=== PATIENT | male | born 1965 | race Caucasian/White ===

== ENCOUNTER 2016-06-01 09:31 | Emergency (ER) | payer MEDICAID ==
[~2016-06-01] VITALS: Ht 165.1 cm; Wt 94.1 kg
[~2016-06-01 09:31] MED LIST: ENAL2.5T PO; METF500T4 PO; PRAV10TA2 PO; PREG100C PO
[2016-06-01] MEDS ORDERED: KETOROLAC 30 MG/1 ML IM ONE (10:30)
[2016-06-01] MEDS ORDERED: KETOROLAC 30 MG/1 ML ONE (10:43)
[2016-06-01] MEDS ORDERED: INSU100V8 SQ (11:17)
[2016-06-01 11:29] VITALS: BP 182/90
== END 2016-06-01 11:51 | disposition home or self-care (01) ==
LOC: ED 11:39
DX: S22.42XA Multiple fractures of ribs, left side, initial encounter for closed fracture (principal); E78.5 Hyperlipidemia, unspecified; I10 Essential (primary) hypertension; E11.40 Type 2 diabetes mellitus with diabetic neuropathy, unspecified; J45.909 Unspecified asthma, uncomplicated; X58.XXXA Exposure to other specified factors, initial encounter; Y93.89 Activity, other specified; Y92.89 Other specified places as the place of occurrence of the external cause; Y99.8 Other external cause status
CPT/HCPCS: 71101; 93005; 96372; 99284; J1885

== ENCOUNTER 2016-08-26 11:01 | Inpatient (IN) | payer MEDICAID ==
[~2016-08-26] VITALS: Ht 165.1 cm; Wt 86.3 kg
[2016-08-26] VITALS (8 sets, daily range): BP systolic 156–181; BP diastolic 73–93
[~2016-08-26 11:01] MED LIST changes: +INSU100V8 SQ
[2016-08-26] MEDS ORDERED: SODIUM CHLORIDE FLUSH 10ML SYR IVF ONE (11:30)
[2016-08-26] MEDS ORDERED: SODIUM CHLORIDE 0.9% 1,000ML IVBOLUS ONE ×2 (11:30→13:30)
[2016-08-26 12:22] LABS: BLOOD UREA NITROGEN 22 mg/dL (7-18)
[2016-08-26 12:28] LABS: ASPARTATE AMINO TRANSFERASE 17 U/L (15-37)
[2016-08-26 12:33] LABS: IS PT STATUS REG ER OR PRE ER? YES
[2016-08-26] MEDS ORDERED: DEXTROSE 50%, 50ML VIAL ONE ×3 (13:06→13:11)
[2016-08-26] MEDS ORDERED: ACETAMINOPHEN 500 MG TABLET ONE (13:07)
[2016-08-26] MEDS ORDERED: INSULIN SINGLE DOSE, ER SQ-INSULIN ONE (13:09)
[2016-08-26] MEDS ORDERED: SODIUM CHLORIDE 0.9% 1,000 ML IV SCH (13:29)
[2016-08-26] MEDS ORDERED: ONDANSETRON 2MG/ML, 2ML IVPush PRN (13:30)
[2016-08-26] MEDS ORDERED: DEXTROSE 4 GM TAB.CHEW PO PRN (13:30)
[2016-08-26] MEDS ORDERED: GLUCAGON 1 MG IM PRN (13:30)
[2016-08-26] MEDS ORDERED: HYDROcodone/APAP 5/325 TABLET PO PRN (13:30)
[2016-08-26] MEDS ORDERED: DOCUSATE 100 MG CAPSULE PO PRN (13:30)
[2016-08-26] MEDS ORDERED: DEXTROSE 50%, 50ML SYRINGE IVPush ONE (13:30)
[2016-08-26] MEDS ORDERED: BISACODYL 10 MG SUPP PR PRN (13:30)
[2016-08-26] MEDS ORDERED: ZOLPIDEM 5MG TABLET PO PRN (13:30)
[2016-08-26] MEDS ORDERED: POLYETHYLENE GLYCOL 17 GM PACKET PO PRN (13:30)
[2016-08-26] MEDS ORDERED: CALCIUM GLUCONATE 0.46MEQ/1ML IVPush ONE (13:30)
[2016-08-26] MEDS ORDERED: INSULIN REGULAR 100 UNITS/ML, 3ML VIAL IVPush ONE (13:30)
[2016-08-26] MEDS ORDERED: ACETAMINOPHEN 500 MG TABLET PO ONE (13:30)
[2016-08-26] MEDS ORDERED: DEXTROSE 50%, 50ML SYRINGE IVPush PRN (13:30)
[2016-08-26 15:36] LABS: PATH.CAST-FLAG NOT PRESENT; SPERM-FLAG NOT PRESENT; SRC-FLAG NOT PRESENT; XTAL-FLAG NOT PRESENT; YLC-FLAG NOT PRESENT
[2016-08-26 15:40] LABS: POTASSIUM,URINE RANDOM 16 mmol/L
[2016-08-26] MEDS: INSULIN ASPART 100 UNITS/ML, PEN SQ-INSULIN SCH ×2 (15:51→20:43)
[2016-08-26] MEDS: ENOXAPARIN 40 MG/0.4 ML SQ SCH ×2 (15:51→16:10)
[2016-08-26 16:13] LABS: BLOOD UREA NITROGEN 19 mg/dL (7-18)
[2016-08-26] MEDS ORDERED: AMLODIPINE 5 MG TABLET PO ONE (16:30)
[2016-08-26] MEDS: hydrALAzine 20 MG/ML, 1ML IV PRN (17:55)
[2016-08-26] MEDS ORDERED: SODIUM POLYSTYRENE SULFONATE ORAL SUSP PO ONE (18:00)
[2016-08-26] MEDS: SODIUM CHLORIDE FLUSH 10ML SYR IVF SCH (21:00)
[2016-08-26] MEDS ORDERED: AMLODIPINE 5 MG TABLET PO SCH (21:00)
[2016-08-27] VITALS (9 sets, daily range): BP systolic 125–196; BP diastolic 76–96
[2016-08-27 05:37] LABS: BLOOD UREA NITROGEN 15 mg/dL (7-18)
[2016-08-27] MEDS: INSULIN ASPART 100 UNITS/ML, PEN SQ-INSULIN SCH ×4 (07:00→19:55)
[2016-08-27] MEDS: ACETAMINOPHEN 325 MG TABLET PO PRN ×2 (07:50→19:45)
[2016-08-27] MEDS: AMLODIPINE 5 MG TABLET PO SCH ×2 (07:50→20:04)
[2016-08-27] MEDS: PREGABALIN 100 MG CAPSULE PO SCH (07:50)
[2016-08-27] MEDS: SODIUM CHLORIDE FLUSH 10ML SYR IVF SCH ×2 (07:51→20:04)
[2016-08-27] MEDS ORDERED: TRAZODONE 100MG TABLET PO PRN (10:00)
[2016-08-27] MEDS ORDERED: HYDROCHLOROTHIAZIDE 12.5 MG CAPSULE PO SCH (10:00)
[2016-08-27] MEDS: VALSARTAN 160 MG TABLET PO SCH (12:26)
[2016-08-27] MEDS: HYDROCHLOROTHIAZIDE 12.5 MG CAPSULE PO SCH (16:09)
[2016-08-27] MEDS: ENOXAPARIN 40 MG/0.4 ML SQ SCH (16:09)
[2016-08-27] MEDS: hydrALAzine 20 MG/ML, 1ML IV PRN (22:26)
[2016-08-28 02:00] VITALS: BP 125/70
[2016-08-28 05:56] LABS: BLOOD UREA NITROGEN 20 mg/dL (7-18)
[2016-08-28] MEDS: INSULIN ASPART 100 UNITS/ML, PEN SQ-INSULIN SCH ×2 (07:00→11:00)
[2016-08-28 07:18] VITALS: BP 145/78
[2016-08-28 07:19] VITALS: BP 133/79
[2016-08-28 07:21] VITALS: BP 144/80
[2016-08-28] MEDS ORDERED: VALS160T3 PO (08:28)
[2016-08-28] MEDS ORDERED: AMLO5TAB2 PO (08:28)
[2016-08-28] MEDS ORDERED: HYDR12.53 PO (08:28)
[2016-08-28] MEDS: PREGABALIN 100 MG CAPSULE PO SCH (09:06)
[2016-08-28] MEDS: VALSARTAN 160 MG TABLET PO SCH (09:06)
[2016-08-28] MEDS: SODIUM CHLORIDE FLUSH 10ML SYR IVF SCH (09:06)
[2016-08-28] MEDS: HYDROCHLOROTHIAZIDE 12.5 MG CAPSULE PO SCH (09:07)
[2016-08-28] MEDS: ACETAMINOPHEN 325 MG TABLET PO PRN (09:07)
[2016-08-28] MEDS: AMLODIPINE 5 MG TABLET PO SCH (09:07)
== END 2016-08-28 13:25 | disposition home or self-care (01) | DRG 641 ==
LOC: ED 11:50 → EDIP 13:03 → SUATTDRO 13:14 → 4EST 14:27
DX: E87.5 Hyperkalemia (principal); E44.1 Mild protein-calorie malnutrition; D64.9 Anemia, unspecified; E11.319 Type 2 diabetes mellitus with unspecified diabetic retinopathy without macular edema; E78.5 Hyperlipidemia, unspecified; E11.21 Type 2 diabetes mellitus with diabetic nephropathy; E11.42 Type 2 diabetes mellitus with diabetic polyneuropathy; I11.9 Hypertensive heart disease without heart failure; E11.649 Type 2 diabetes mellitus with hypoglycemia without coma; I95.1 Orthostatic hypotension; E86.0 Dehydration; F51.04 Psychophysiologic insomnia; T46.4X5A Adverse effect of angiotensin-converting-enzyme inhibitors, initial encounter; Z79.4 Long term (current) use of insulin; Z83.3 Family history of diabetes mellitus; Z98.49 Cataract extraction status, unspecified eye; Z79.84 Long term (current) use of oral hypoglycemic drugs; Z79.899 Other long term (current) drug therapy; Z68.31 Body mass index [BMI] 31.0-31.9, adult
CPT/HCPCS: 36415; 70450; 71010; 80048; 80053; 81001; 82436; 82962; 83036; 83735; 84133; 84300; 84484; 85025; 93005; 96361; 96374; 96375; J0610; J1650; J1815; J0360; J7030

== ENCOUNTER 2016-09-17 16:08 | Inpatient (IN) | payer MEDICAID ==
[~2016-09-17] VITALS: Ht 165.1 cm; Wt 85.9 kg
[~2016-09-17 16:08] MED LIST changes: +AMLO5TAB2 PO; +HYDR12.53 PO; +VALS160T3 PO
[2016-09-17 17:30] LABS: HEMOGLOBIN 11.5 g/dL (13.7-18.0); WHITE BLOOD COUNT 6.5 x10^3/uL (3.4-10)
[2016-09-17 17:40] LABS: BLOOD UREA NITROGEN 34 mg/dL (7-18)
[2016-09-17] MEDS ORDERED: CALCIUM CHLORIDE 10%, 10ML SYR ONE (18:15)
[2016-09-17] MEDS ORDERED: DEXTROSE 50%, 50ML VIAL ONE ×2 (18:15→19:46)
[2016-09-17] MEDS ORDERED: DEXTROSE 50%, 50ML SYRINGE IVPush ONE ×2 (18:30→20:00)
[2016-09-17] MEDS ORDERED: SODIUM CHLORIDE FLUSH 10ML SYR IVF ONE (18:30)
[2016-09-17] MEDS ORDERED: SODIUM CHLORIDE 0.9% 1,000ML IVBOLUS ONE (18:30)
[2016-09-17] MEDS ORDERED: SODIUM BICARB 8.4%, 50ML SYRINGE IVPush ONE (18:30)
[2016-09-17] MEDS ORDERED: CALCIUM CHLORIDE 10%, 10ML SYR IVPush ONE (18:30)
[2016-09-17] MEDS ORDERED: INSULIN REGULAR 100 UNITS/ML, 3ML VIAL IVPush ONE (18:30)
[2016-09-17] MEDS ORDERED: ONDANSETRON 2MG/ML, 2ML IVPush PRN (19:00)
[2016-09-17] MEDS ORDERED: ACETAMINOPHEN 325 MG TABLET PO PRN (19:00)
[2016-09-17] MEDS ORDERED: TEMAZEPAM 15 MG CAPSULE PO PRN (19:00)
[2016-09-17] MEDS ORDERED: CALCIUM GLUCONATE 4.6 MEQ/10 ML IVPush ONE (19:00)
[2016-09-17] MEDS ORDERED: CALCIUM GLUCONATE 4.6 MEQ in SODIUM CHLORIDE 0.9% 50 ML IV ONE (19:30)
[2016-09-17] MEDS ORDERED: SODIUM POLYSTYRENE SULFONATE ORAL SUSP PO ONE (19:30)
[2016-09-17] MEDS ORDERED: DEXTROSE 50%, 50ML VIAL IVPush ONE (20:30)
[2016-09-17 20:41] VITALS: BP 135/81
[2016-09-17] MEDS: SODIUM CHLORIDE 0.9% 1,000 ML IV SCH (22:09)
[2016-09-17] MEDS: HEPARIN 5,000 UNITS/ML, 1ML SQ SCH (22:11)
[2016-09-18 01:28] VITALS: BP 153/83
[2016-09-18] MEDS: HEPARIN 5,000 UNITS/ML, 1ML SQ SCH ×3 (05:22→21:17)
[2016-09-18] MEDS: SODIUM CHLORIDE 0.9% 1,000 ML IV SCH ×2 (05:22→16:57)
[2016-09-18 05:48] LABS: BLOOD UREA NITROGEN 24 mg/dL (7-18)
[2016-09-18 05:50] LABS: HEMATOCRIT 37.4 % (39.2-51.8); HEMOGLOBIN 12.3 g/dL (13.7-18.0); WHITE BLOOD COUNT 5.9 x10^3/uL (3.4-10)
[2016-09-18 08:09] VITALS: BP 149/87
[2016-09-18] MEDS ORDERED: HYDROCHLOROTHIAZIDE 12.5 MG CAPSULE PO SCH (09:00)
[2016-09-18] MEDS: PREGABALIN 100 MG CAPSULE PO SCH (09:17)
[2016-09-18] MEDS: AMLODIPINE 5 MG TABLET PO SCH ×2 (09:17→21:16)
[2016-09-18 13:25] VITALS: BP 156/89
[2016-09-18] MEDS ORDERED: HYDROCHLOROTHIAZIDE 12.5 MG CAPSULE PO ONE (15:00)
[2016-09-18 18:24] VITALS: BP 145/83
[2016-09-18] MEDS ORDERED: GLUCAGON 1 MG IM PRN (19:30)
[2016-09-18] MEDS ORDERED: DEXTROSE 50%, 50ML SYRINGE IVPush PRN (19:30)
[2016-09-18] MEDS ORDERED: DEXTROSE 4 GM TAB.CHEW PO PRN (19:30)
[2016-09-18] MEDS: INSULIN ASPART 100 UNITS/ML, PEN SQ-INSULIN SCH (20:21)
[2016-09-18] MEDS: SODIUM CHLORIDE FLUSH 10ML SYR IVF SCH (21:16)
[2016-09-19] MEDS: SODIUM CHLORIDE 0.9% 1,000 ML IV SCH ×2 (00:55→08:13)
[2016-09-19 02:31] VITALS: BP 148/80
[2016-09-19] MEDS: HEPARIN 5,000 UNITS/ML, 1ML SQ SCH (05:38)
[2016-09-19 06:14] LABS: BLOOD UREA NITROGEN 10 mg/dL (7-18)
[2016-09-19] MEDS: INSULIN ASPART 100 UNITS/ML, PEN SQ-INSULIN SCH (07:00)
[2016-09-19 07:45] VITALS: BP 161/88
[2016-09-19] MEDS: PREGABALIN 100 MG CAPSULE PO SCH (08:10)
[2016-09-19] MEDS: AMLODIPINE 5 MG TABLET PO SCH (08:10)
[2016-09-19] MEDS: SODIUM CHLORIDE FLUSH 10ML SYR IVF SCH (08:11)
[2016-09-19] MEDS ORDERED: HYDROCHLOROTHIAZIDE 12.5 MG CAPSULE PO SCH (09:00)
[2016-09-19] MEDS ORDERED: HYDR12.53 PO (11:10)
[2016-09-19] MEDS ORDERED: ONDANSETRON 2MG/ML, 2ML IVPush PRN (15:00)
[2016-09-19] MEDS ORDERED: DEXTROSE 50%, 50ML SYRINGE IVPush PRN (15:00)
[2016-09-19] MEDS ORDERED: TEMAZEPAM 15 MG CAPSULE PO PRN (15:00)
[2016-09-19] MEDS ORDERED: DEXTROSE 4 GM TAB.CHEW PO PRN (15:00)
[2016-09-19] MEDS ORDERED: ACETAMINOPHEN 325 MG TABLET PO PRN (15:00)
[2016-09-19] MEDS ORDERED: GLUCAGON 1 MG IM PRN (15:00)
[2016-09-19] MEDS ORDERED: SODIUM CHLORIDE FLUSH 10ML SYR IVF SCH (21:00)
== END 2016-09-19 14:40 | disposition home or self-care (01) | DRG 640 ==
LOC: ED 18:50 → EDIP 18:51 → ED 19:02 → 4WST 20:40
PROVIDERS: ADMIT Internal Medicine; ATTEND Internal Medicine
DX: E87.5 Hyperkalemia (principal); N17.0 Acute kidney failure with tubular necrosis; E11.40 Type 2 diabetes mellitus with diabetic neuropathy, unspecified; J45.909 Unspecified asthma, uncomplicated; E11.649 Type 2 diabetes mellitus with hypoglycemia without coma; I10 Essential (primary) hypertension; E78.5 Hyperlipidemia, unspecified; D64.9 Anemia, unspecified
CPT/HCPCS: 36415; 80048; 82962; 83735; 84132; 85025; 93005; 96374; 96375; J0610; J1644; J1815; J7030

== ENCOUNTER 2016-11-15 04:26 | Emergency (ER) | payer MEDICAID ==
[~2016-11-15] VITALS: Ht 165.1 cm; Wt 90.6 kg
[2016-11-15 05:47] LABS: HEMATOCRIT 35.6 % (39.2-51.8); HEMOGLOBIN 11.9 g/dL (13.7-18.0); WHITE BLOOD COUNT 5.4 x10^3/uL (3.4-10)
[2016-11-15 05:59] LABS: BLOOD UREA NITROGEN 31 mg/dL (7-18)
[2016-11-15 07:19] LABS: PATH.CAST-FLAG NOT PRESENT; SPERM-FLAG NOT PRESENT; SRC-FLAG NOT PRESENT; XTAL-FLAG NOT PRESENT; YLC-FLAG NOT PRESENT
[2016-11-15 08:18] VITALS: BP 155/77
[2016-11-16 15:57] LABS: RHEUMATOID FACTOR SCREEN NEGATIVE (NEGATIVE)
== END 2016-11-15 08:43 | disposition home or self-care (01) ==
LOC: ED 05:40
DX: M17.31 Unilateral post-traumatic osteoarthritis, right knee (principal); I10 Essential (primary) hypertension; E11.40 Type 2 diabetes mellitus with diabetic neuropathy, unspecified
CPT/HCPCS: 29505; 36415; 80048; 81001; 82040; 83880; 85025; 86430

== ENCOUNTER 2016-11-22 18:37 | Emergency (ER) | payer MEDICAID ==
[~2016-11-22] VITALS: Ht 165.1 cm; Wt 90.0 kg
[2016-11-22 19:54] LABS: BLOOD UREA NITROGEN 34 mg/dL (7-18); HEMATOCRIT 34.4 % (39.2-51.8); HEMOGLOBIN 11.6 g/dL (13.7-18.0); WHITE BLOOD COUNT 7.6 x10^3/uL (3.4-10)
[2016-11-22 20:59] VITALS: BP 126/64
== END 2016-11-22 21:01 | disposition home or self-care (01) ==
LOC: ED 20:42
DX: R60.0 Localized edema (principal); T50.995A Adverse effect of other drugs, medicaments and biological substances, initial encounter; Y92.89 Other specified places as the place of occurrence of the external cause; I10 Essential (primary) hypertension; E11.9 Type 2 diabetes mellitus without complications; J45.909 Unspecified asthma, uncomplicated; E78.5 Hyperlipidemia, unspecified
CPT/HCPCS: 36415; 71010; 80048; 82040; 85025; 93005; 93970; 99285

== ENCOUNTER 2017-01-29 19:16 | Emergency (ER) | payer MEDICAID ==
[~2017-01-29] VITALS: Ht 157.5 cm; Wt 85.8 kg
[2017-01-29 20:19] LABS: HEMATOCRIT 38.2 % (39.2-51.8); HEMOGLOBIN 12.8 g/dL (13.7-18.0); WHITE BLOOD COUNT 7.5 x10^3/uL (3.4-10)
[2017-01-29 20:24] LABS: RAPID INFLUENZA A Negative (Negative); RAPID INFLUENZA B Negative (Negative)
[2017-01-29 20:31] LABS: BLOOD UREA NITROGEN 19 mg/dL (7-18)
[2017-01-29 21:27] VITALS: BP 159/103
== END 2017-01-29 21:43 | disposition home or self-care (01) ==
LOC: ED 19:57
DX: B34.9 Viral infection, unspecified (principal); J34.0 Abscess, furuncle and carbuncle of nose; R51 Headache; I10 Essential (primary) hypertension; E11.9 Type 2 diabetes mellitus without complications; J45.909 Unspecified asthma, uncomplicated; E78.5 Hyperlipidemia, unspecified
CPT/HCPCS: 36415; 71020; 80048; 85025; 87400; 93005; 99285

== ENCOUNTER 2017-02-20 16:21 | Emergency (ER) | payer MEDICAID ==
[~2017-02-20] VITALS: Ht 165.1 cm; Wt 88.8 kg
[2017-02-20 16:23] VITALS: BP 192/96
== END 2017-02-20 18:10 | disposition home or self-care (01) ==
LOC: ED 16:58
DX: S50.11XA Contusion of right forearm, initial encounter (principal); S60.211A Contusion of right wrist, initial encounter; S60.221A Contusion of right hand, initial encounter; E11.9 Type 2 diabetes mellitus without complications; E78.5 Hyperlipidemia, unspecified; I10 Essential (primary) hypertension; X58.XXXA Exposure to other specified factors, initial encounter; Y93.E9 Activity, other interior property and clothing maintenance; Y99.8 Other external cause status; Y92.090 Kitchen in other non-institutional residence as the place of occurrence of the external cause
CPT/HCPCS: 99284

== ENCOUNTER 2017-05-14 21:35 | Emergency (ER) | payer MEDICAID ==
[~2017-05-14] VITALS: Ht 165.1 cm; Wt 96.4 kg
[2017-05-14] MEDS ORDERED: SODIUM CHLORIDE FLUSH 10ML SYR IVF ONE (22:00)
[2017-05-14 22:36] LABS: BASOPHILS # (AUTO) 0.02 x10^3/uL (0-0.1); BASOPHILS % (AUTO) 0 % (0-1); EOSINOPHILS # (AUTO) 0.25 x10^3/uL (0-0.4); EOSINOPHILS % (AUTO) 5 % (1-7); LYMPHOCYTES # (AUTO) 1.23 x10^3/uL (1-3.4); LYMPHOCYTES % (AUTO) 22 % (22-44); MD NO; MEAN CORPUSCULAR HEMOGLOBIN 31.5 pg (27.5-34.5); MEAN CORPUSCULAR HGB CONC 34.2 g/dL (33.2-36.2); MEAN CORPUSCULAR VOLUME 92.1 fL (81-97); MEAN PLATELET VOLUME 9.7 fL (7.4-10.4); MONOCYTES # (AUTO) 0.49 x10^3/uL (0.2-0.8); MONOCYTES % (AUTO) 9 % (2-9); NEUTROPHILS # (AUTO) 3.49 x10^3/uL (1.8-6.8); NEUTROPHILS % (AUTO) 64 % (42-75); PLATELET COUNT 195 x10^3/uL (130-400); RED BLOOD COUNT 4.06 x10^6/uL (4.38-5.82); RED CELL DISTRIBUTION WIDTH 14.5 % (9.4-14.8)
[2017-05-14 22:43] LABS: ALANINE AMINOTRANSFERASE 15 U/L (12-78); ALBUMIN 2.6 g/dL (3.4-5.0); ANION GAP 7 mmol/L (5-15); CALCIUM 7.5 mg/dL (8.5-10.1); CHLORIDE 105 mmol/L (98-107); CREATININE 1.55 mg/dL (0.7-1.3)
[2017-05-14 22:47] LABS: ALKALINE PHOSPHATASE 171 U/L (45-117); BILIRUBIN,TOTAL 0.2 mg/dL (0.2-1.0); INTERNATIONAL NORMALIZED RATIO 0.91 (0.93-1.1); PROTHROMBIN TIME 9.4 Seconds (9.6-11.5); TROPONIN I < 0.015 ng/mL (0.000-0.045)
[2017-05-14] MEDS ORDERED: AMLO5TAB2 PO (23:03)
[2017-05-14] MEDS ORDERED: FUROSEMIDE 80 MG TABLET PO ONE (23:30)
[2017-05-14 23:31] VITALS: BP 126/61
[2017-05-14 23:32] LABS: MICROSCOPIC AUTO
[2017-05-14] MEDS ORDERED: FUROSEMIDE 80 MG TABLET ONE (23:37)
[2017-05-14 23:38] LABS: CULTURE INDICATED? NO
== END 2017-05-15 00:45 ==
LOC: ED 23:59
DX: R10.84 Generalized abdominal pain (principal); R60.0 Localized edema; K59.00 Constipation, unspecified; I10 Essential (primary) hypertension; E11.9 Type 2 diabetes mellitus without complications
CPT/HCPCS: 36415; 74022; 80053; 81001; 83880; 84484; 85025; 85610; 85730; 93005; 99285

== ENCOUNTER 2017-11-23 17:16 | Emergency (ER) | payer MEDICAID ==
[~2017-11-23] VITALS: Ht 165.1 cm; Wt 94.0 kg
[~2017-11-23 17:16] MED LIST changes: -AMLO5TAB2 PO; +AMLO5TAB7 PO; +METF500T17 PO; -METF500T4 PO
[2017-11-23] MEDS ORDERED: SODIUM CHLORIDE 0.9% 1,000 ML IV ONE (17:24)
[2017-11-23] MEDS ORDERED: SODIUM CHLORIDE FLUSH 10ML SYR IVF ONE (17:30)
[2017-11-23 17:53] LABS: PH, VENOUS 7.296 pH (7.320-7.420)
[2017-11-23 17:55] LABS: O2 FLOW ROOM AIR L/min
[2017-11-23 17:57] LABS: BASOPHILS # (AUTO) 0.06 x10^3/uL (0-0.1); BASOPHILS % (AUTO) 1 % (0-1); EOSINOPHILS # (AUTO) 0.29 x10^3/uL (0-0.4); EOSINOPHILS % (AUTO) 4 % (1-7); LYMPHOCYTES # (AUTO) 2.06 x10^3/uL (1-3.4); LYMPHOCYTES % (AUTO) 31 % (22-44); MD NO; MEAN CORPUSCULAR HEMOGLOBIN 31.4 pg (27.5-34.5); MEAN CORPUSCULAR HGB CONC 33.5 g/dL (33.2-36.2); MEAN CORPUSCULAR VOLUME 93.6 fL (81-97); MEAN PLATELET VOLUME 10.5 fL (7.4-10.4); MONOCYTES # (AUTO) 0.55 x10^3/uL (0.2-0.8); MONOCYTES % (AUTO) 8 % (2-9); NEUTROPHILS # (AUTO) 3.66 x10^3/uL (1.8-6.8); NEUTROPHILS % (AUTO) 55 % (42-75); PLATELET COUNT 179 x10^3/uL (130-400); RED BLOOD COUNT 3.89 x10^6/uL (4.38-5.82); RED CELL DISTRIBUTION WIDTH 13.2 % (9.4-14.8)
[2017-11-23 18:00] LABS: MICROSCOPIC AUTO
[2017-11-23 18:06] LABS: ANION GAP 6 mmol/L (5-15); CALCIUM 7.8 mg/dL (8.5-10.1); CHLORIDE 110 mmol/L (98-107)
[2017-11-23 18:06] LABS: CULTURE INDICATED? NO
[2017-11-23 18:11] LABS: ALANINE AMINOTRANSFERASE 20 U/L (12-78); ALKALINE PHOSPHATASE 206 U/L (45-117); BILIRUBIN,TOTAL 0.3 mg/dL (0.2-1.0); CREATININE 1.52 mg/dL (0.7-1.3); TOTAL PROTEIN 7.3 g/dL (6.4-8.2)
[2017-11-23 18:41] LABS: ACETONE, SERUM Negative (Negative)
[2017-11-23] MEDS ORDERED: ALBU1.25 NEB (18:53)
[2017-11-23] MEDS ORDERED: MONT5TAB9 PO (18:53)
[2017-11-23] MEDS ORDERED: MAALOX/HYOSCYAMINE/LIDOCAINE 45 ML BTL ONE (18:57)
[2017-11-23] MEDS ORDERED: MAALOX/HYOSCYAMINE/LIDOCAINE 45 ML BTL PO ONE (19:00)
[2017-11-23 20:23] VITALS: BP 177/92
== END 2017-11-23 20:33 | disposition home or self-care (01) ==
LOC: ED 17:24
DX: R10.13 Epigastric pain (principal); E11.65 Type 2 diabetes mellitus with hyperglycemia; I10 Essential (primary) hypertension; E78.5 Hyperlipidemia, unspecified
CPT/HCPCS: 36415; 74022; 80053; 81001; 82010; 82803; 83690; 83880; 85025; 93005; 99285; J7030

== ENCOUNTER 2018-03-28 20:26 | Inpatient (IN) | payer MEDICAID ==
[~2018-03-28] VITALS: Ht 165.1 cm; Wt 97.9 kg
[~2018-03-28 20:26] MED LIST changes: +ALBU1.25 NEB; +AMLO-150 PO; -AMLO5TAB7 PO; +HYDR12.517 PO; -HYDR12.53 PO; +MONT5TAB9 PO
--- NOTE | 2018-03-28 20:47 | NUR ---
URINE SAMPLE COLLECTED AND SENT TO LAB.
[2018-03-28 20:55] LABS: MICROSCOPIC AUTO
[2018-03-28] MEDS ORDERED: ALBUTEROL SULFATE 2.5 MG/3 ML NPPB ONE (21:00)
[2018-03-28 21:06] LABS: CULTURE INDICATED? NO
--- NOTE | 2018-03-28 21:10 | NUR ---
FROM LOBBY TO ROOM
[2018-03-28] MEDS ORDERED: ALBUTEROL SULFATE 2.5 MG/3 ML ONE (21:20)
--- NOTE | 2018-03-28 21:26 | NUR ---
PT COMPLAINS OF DRY, NON-PRODUCTIVE X 1 MONTH. PT STATES HE STARTED TAKING LISINOPRIL X A LITTLE OVER OF MONTH AGO. PT PLACED ON CONT, SPO2 AND BP MONITOR.
--- NOTE | 2018-03-28 21:36 | NUR ---
PT'S BS 337 ON HOSPITAL GLUCOMETER
[2018-03-28 21:45] LABS: BASOPHILS # (AUTO) 0.05 x10^3/uL (0-0.1); BASOPHILS % (AUTO) 1 % (0-1); EOSINOPHILS # (AUTO) 0.28 x10^3/uL (0-0.4); EOSINOPHILS % (AUTO) 5 % (1-7); LYMPHOCYTES # (AUTO) 2.04 x10^3/uL (1-3.4); LYMPHOCYTES % (AUTO) 34 % (22-44); MD NO; MEAN CORPUSCULAR HEMOGLOBIN 30.7 pg (27.5-34.5); MEAN CORPUSCULAR HGB CONC 33.3 g/dL (33.2-36.2); MEAN CORPUSCULAR VOLUME 92.2 fL (81-97); MEAN PLATELET VOLUME 10.1 fL (7.4-10.4); MONOCYTES % (AUTO) 7 % (2-9); NEUTROPHILS # (AUTO) 3.29 x10^3/uL (1.8-6.8); NEUTROPHILS % (AUTO) 54 % (42-75); PLATELET COUNT 209 x10^3/uL (130-400); RED BLOOD COUNT 3.84 x10^6/uL (4.38-5.82); RED CELL DISTRIBUTION WIDTH 14.1 % (9.4-14.8)
[2018-03-28 21:53] LABS: ALANINE AMINOTRANSFERASE 25 U/L (12-78); ALBUMIN 2.8 g/dL (3.4-5.0); ANION GAP 3 mmol/L (5-15); CALCIUM 8.5 mg/dL (8.5-10.1); CHLORIDE 110 mmol/L (98-107); CREATININE 1.53 mg/dL (0.7-1.3)
[2018-03-28 21:57] LABS: ALKALINE PHOSPHATASE 158 U/L (45-117); BILIRUBIN,TOTAL 0.2 mg/dL (0.2-1.0); TROPONIN I < 0.015 ng/mL (0.000-0.045)
[2018-03-28] MEDS ORDERED: BENZONATATE 100 MG CAPSULE ONE (21:57)
[2018-03-28] MEDS ORDERED: BENZONATATE 100 MG CAPSULE PO ONE (22:30)
[2018-03-28] MEDS ORDERED: SODIUM CHLORIDE 0.9% 1,000ML IVBOLUS ONE (22:30)
[2018-03-28 23:16] LABS: ANION GAP 3 mmol/L (5-15); CALCIUM 8.3 mg/dL (8.5-10.1); CHLORIDE 113 mmol/L (98-107); CREATININE 1.37 mg/dL (0.7-1.3)
--- NOTE | 2018-03-28 23:31 | NUR ---
POTASSIUM 6.1, DR FERNANDEZ NOTIFIED
[2018-03-29] MEDS ORDERED: INSULIN LISPRO 100 UNITS/ML, PEN ONE (00:19)
[2018-03-29] MEDS ORDERED: INSULIN REGULAR 100 UNITS/ML, 3ML VIAL IVPush ONE (00:30)
[2018-03-29] MEDS ORDERED: LIDODERM 5% PATCH TD PRN (00:30)
[2018-03-29] MEDS ORDERED: TEMAZEPAM 15 MG CAPSULE PO PRN (00:30)
[2018-03-29] MEDS ORDERED: SODIUM POLY SULFONATE UDC 15 GM/60 ML PO ONE (00:30)
[2018-03-29] MEDS ORDERED: ACETAMINOPHEN 325 MG TABLET PO PRN (00:30)
[2018-03-29] MEDS ORDERED: DEXTROSE 50%, 50ML SYRINGE IVPush ONE (00:30)
[2018-03-29] MEDS ORDERED: DOCUSATE 100 MG CAPSULE PO PRN (00:30)
[2018-03-29] MEDS ORDERED: hydrALAzine 20 MG/ML, 1ML IVPush PRN (00:30)
[2018-03-29] MEDS ORDERED: ONDANSETRON ODT 4 MG PO PRN (00:30)
--- NOTE | 2018-03-29 00:43 | NUR ---
report given to wood tay
[2018-03-29 01:03] VITALS: BP 162/84
[2018-03-29 01:28] VITALS: BP 162/84
[2018-03-29] MEDS ORDERED: ALBUTEROL SULFATE 2.5 MG/3 ML NPPB PRN (02:00)
[2018-03-29] MEDS: INSULIN LISPRO 100 UNITS/ML, PEN SQ-INSULIN SCH ×3 (02:53→11:00)
[2018-03-29] MEDS: D5%-0.45% NACL 1,000 ML IV SCH ×2 (02:53→09:19)
[2018-03-29 07:30] VITALS: BP 143/86
[2018-03-29] MEDS ORDERED: PREG100C PO (10:15)
[2018-03-29] MEDS ORDERED: ALBU18HF INH (10:21)
[2018-03-29] MEDS ORDERED: TRAZ50TA66 PO (10:21)
[2018-03-29] MEDS ORDERED: LISI40TA PO (10:21)
[2018-03-29] MEDS ORDERED: ATOR40TA78 PO (10:21)
[2018-03-29] MEDS ORDERED: TRAM50TA2 PO (10:21)
[2018-03-29] MEDS ORDERED: CETI10TA24 PO (10:21)
[2018-03-29] MEDS ORDERED: METF500T17 PO (10:21)
[2018-03-29] MEDS ORDERED: MONT10TA6 PO (10:21)
[2018-03-29 10:41] LABS: ANION GAP 4 mmol/L (5-15); CALCIUM 7.9 mg/dL (8.5-10.1); CHLORIDE 113 mmol/L (98-107); CREATININE 1.25 mg/dL (0.7-1.3)
[2018-03-29] MEDS ORDERED: ALBUTEROL SULFATE 2.5 MG/3 ML NEB PRN (13:00)
[2018-03-29] MEDS ORDERED: AMLO-150 PO (13:09)
[2018-03-29 14:00] VITALS: BP 145/82
[2018-03-29] MEDS ORDERED: AMLODIPINE 5 MG TABLET PO SCH (21:00)
[2018-03-29] MEDS ORDERED: ATORVASTATIN 40 MG TABLET PO SCH (21:00)
[2018-03-30] MEDS ORDERED: MONTELUKAST 5 MG TAB.CHEW PO SCH (09:00)
[2018-03-30] MEDS ORDERED: PREGABALIN 100 MG CAPSULE PO SCH (09:00)
== END 2018-03-29 15:04 | disposition home or self-care (01) | DRG 204 ==
LOC: ED 23:53 → EDIP 03-29 00:20 → 4WST 03-29 01:05 → DCLOUNGE 03-29 14:50
PROVIDERS: ADMIT Internal Medicine; ATTEND Internal Medicine
DX: R05 Cough (principal); N17.9 Acute kidney failure, unspecified; E11.319 Type 2 diabetes mellitus with unspecified diabetic retinopathy without macular edema; E11.40 Type 2 diabetes mellitus with diabetic neuropathy, unspecified; E11.65 Type 2 diabetes mellitus with hyperglycemia; E66.01 Morbid (severe) obesity due to excess calories; E78.5 Hyperlipidemia, unspecified; D64.9 Anemia, unspecified; E83.51 Hypocalcemia; E87.5 Hyperkalemia; I10 Essential (primary) hypertension; I16.0 Hypertensive urgency; J45.909 Unspecified asthma, uncomplicated; T46.4X5A Adverse effect of angiotensin-converting-enzyme inhibitors, initial encounter; Y92.89 Other specified places as the place of occurrence of the external cause; Z82.49 Family history of ischemic heart disease and other diseases of the circulatory system; Z83.3 Family history of diabetes mellitus; M19.90 Unspecified osteoarthritis, unspecified site; Z79.899 Other long term (current) drug therapy; Z98.49 Cataract extraction status, unspecified eye; Z68.35 Body mass index [BMI] 35.0-35.9, adult
CPT/HCPCS: 36415; 99285; J7613; 71045; 80048; 80053; 81001; 82962; 83690; 84484; 85025; 93005; 94640; 96361; 96374; 96375; J1815; J7030

== ENCOUNTER 2018-04-08 12:43 | Emergency (ER) | payer MEDICAID ==
[~2018-04-08] VITALS: Ht 165.1 cm; Wt 97.0 kg
[~2018-04-08 12:43] MED LIST changes: +ALBU18HF INH; +ATOR40TA78 PO; +CETI10TA24 PO; +LISI40TA PO; +MONT10TA6 PO; +TRAM50TA2 PO; +TRAZ50TA66 PO
[2018-04-08 13:00] VITALS: BP 165/84
== END 2018-04-08 14:24 | disposition home or self-care (01) ==
LOC: ED 14:00
DX: M79.671 Pain in right foot (principal); L89.612 Pressure ulcer of right heel, stage 2; I10 Essential (primary) hypertension; E11.9 Type 2 diabetes mellitus without complications; E78.5 Hyperlipidemia, unspecified; J45.909 Unspecified asthma, uncomplicated
CPT/HCPCS: 99283

== ENCOUNTER 2018-04-14 17:04 | Emergency (ER) | payer MEDICAID ==
[~2018-04-14] VITALS: Ht 165.1 cm; Wt 96.5 kg
[2018-04-14 18:26] LABS: BASOPHILS # (AUTO) 0.05 x10^3/uL (0-0.1); BASOPHILS % (AUTO) 1 % (0-1); EOSINOPHILS # (AUTO) 0.36 x10^3/uL (0-0.4); EOSINOPHILS % (AUTO) 5 % (1-7); LYMPHOCYTES # (AUTO) 2.32 x10^3/uL (1-3.4); LYMPHOCYTES % (AUTO) 31 % (22-44); MD NO; MEAN CORPUSCULAR HEMOGLOBIN 30.9 pg (27.5-34.5); MEAN CORPUSCULAR HGB CONC 33.5 g/dL (33.2-36.2); MEAN CORPUSCULAR VOLUME 92.2 fL (81-97); MEAN PLATELET VOLUME 10.7 fL (7.4-10.4); MONOCYTES # (AUTO) 0.57 x10^3/uL (0.2-0.8); MONOCYTES % (AUTO) 8 % (2-9); NEUTROPHILS # (AUTO) 4.29 x10^3/uL (1.8-6.8); NEUTROPHILS % (AUTO) 57 % (42-75); PLATELET COUNT 260 x10^3/uL (130-400); RED BLOOD COUNT 4.27 x10^6/uL (4.38-5.82); RED CELL DISTRIBUTION WIDTH 13.8 % (9.4-14.8)
[2018-04-14 18:29] LABS: ALANINE AMINOTRANSFERASE 19 U/L (12-78); ALBUMIN 3.1 g/dL (3.4-5.0); ANION GAP 4 mmol/L (5-15); CALCIUM 8.9 mg/dL (8.5-10.1); CHLORIDE 103 mmol/L (98-107); CREATININE 1.69 mg/dL (0.7-1.3)
[2018-04-14 18:31] LABS: ALKALINE PHOSPHATASE 182 U/L (45-117); BILIRUBIN,TOTAL 0.2 mg/dL (0.2-1.0); TOTAL PROTEIN 7.5 g/dL (6.4-8.2)
[2018-04-14 19:55] VITALS: BP 114/51
== END 2018-04-14 20:36 | disposition home or self-care (01) ==
LOC: ED 20:08
DX: S90.821A Blister (nonthermal), right foot, initial encounter (principal); E11.9 Type 2 diabetes mellitus without complications; X58.XXXA Exposure to other specified factors, initial encounter; Y93.89 Activity, other specified; Y92.89 Other specified places as the place of occurrence of the external cause; Y99.8 Other external cause status
CPT/HCPCS: 36415; 80053; 85025; 99284

== ENCOUNTER → 2018-04-17 | Outpatient (CLI) | payer MEDICAID | END | disposition home or self-care (01) | LOC: WOUND 08:13 | PROVIDERS: ATTEND Internal Medicine | DX: E11.621 Type 2 diabetes mellitus with foot ulcer (principal); L97.512 Non-pressure chronic ulcer of other part of right foot with fat layer exposed; E11.65 Type 2 diabetes mellitus with hyperglycemia; E11.319 Type 2 diabetes mellitus with unspecified diabetic retinopathy without macular edema; E11.40 Type 2 diabetes mellitus with diabetic neuropathy, unspecified; L84 Corns and callosities; I10 Essential (primary) hypertension; E78.5 Hyperlipidemia, unspecified; J45.909 Unspecified asthma, uncomplicated; M19.90 Unspecified osteoarthritis, unspecified site; E66.01 Morbid (severe) obesity due to excess calories; Z68.34 Body mass index [BMI] 34.0-34.9, adult; Z79.899 Other long term (current) drug therapy | CPT/HCPCS: 11042; 99215 ==

== ENCOUNTER 2018-04-24 12:33 | Outpatient (CLI) | payer MEDICAID | END 2018-04-24 23:59 | disposition home or self-care (01) | LOC: WOUND 12:33 | PROVIDERS: ATTEND Internal Medicine | DX: E11.621 Type 2 diabetes mellitus with foot ulcer (principal); L97.512 Non-pressure chronic ulcer of other part of right foot with fat layer exposed; E11.65 Type 2 diabetes mellitus with hyperglycemia; E11.319 Type 2 diabetes mellitus with unspecified diabetic retinopathy without macular edema; E11.40 Type 2 diabetes mellitus with diabetic neuropathy, unspecified; L84 Corns and callosities; I10 Essential (primary) hypertension; E78.5 Hyperlipidemia, unspecified; J45.909 Unspecified asthma, uncomplicated; M19.90 Unspecified osteoarthritis, unspecified site; E66.01 Morbid (severe) obesity due to excess calories; Z68.34 Body mass index [BMI] 34.0-34.9, adult; Z79.899 Other long term (current) drug therapy | CPT/HCPCS: 97597 ==

== ENCOUNTER → 2018-05-01 | Outpatient (CLI) | payer MEDICAID | END | disposition home or self-care (01) | LOC: WOUND 13:00 | PROVIDERS: ATTEND Internal Medicine | DX: E11.621 Type 2 diabetes mellitus with foot ulcer (principal); L97.512 Non-pressure chronic ulcer of other part of right foot with fat layer exposed; E11.42 Type 2 diabetes mellitus with diabetic polyneuropathy; E11.65 Type 2 diabetes mellitus with hyperglycemia; E11.319 Type 2 diabetes mellitus with unspecified diabetic retinopathy without macular edema; L84 Corns and callosities; I10 Essential (primary) hypertension; E78.5 Hyperlipidemia, unspecified; J45.909 Unspecified asthma, uncomplicated; M19.90 Unspecified osteoarthritis, unspecified site; E66.01 Morbid (severe) obesity due to excess calories; Z68.34 Body mass index [BMI] 34.0-34.9, adult; Z79.899 Other long term (current) drug therapy | CPT/HCPCS: 97597 ==

== ENCOUNTER → 2018-05-08 | Outpatient (CLI) | payer MEDICAID | END | disposition home or self-care (01) | LOC: WOUND 08:25 | PROVIDERS: ATTEND Internal Medicine | DX: E11.621 Type 2 diabetes mellitus with foot ulcer (principal); L97.512 Non-pressure chronic ulcer of other part of right foot with fat layer exposed; E11.42 Type 2 diabetes mellitus with diabetic polyneuropathy; E11.65 Type 2 diabetes mellitus with hyperglycemia; E11.319 Type 2 diabetes mellitus with unspecified diabetic retinopathy without macular edema; L84 Corns and callosities; E78.5 Hyperlipidemia, unspecified; I10 Essential (primary) hypertension; J45.909 Unspecified asthma, uncomplicated; M19.90 Unspecified osteoarthritis, unspecified site; E66.01 Morbid (severe) obesity due to excess calories; Z68.34 Body mass index [BMI] 34.0-34.9, adult; Z79.899 Other long term (current) drug therapy | CPT/HCPCS: 97597 ==

== ENCOUNTER → 2018-05-11 | Outpatient (CLI) | payer MEDICAID | END | disposition home or self-care (01) | LOC: CVU 12:14 | PROVIDERS: ATTEND Internal Medicine | DX: E11.51 Type 2 diabetes mellitus with diabetic peripheral angiopathy without gangrene (principal); E11.621 Type 2 diabetes mellitus with foot ulcer; E78.5 Hyperlipidemia, unspecified; I10 Essential (primary) hypertension; J45.909 Unspecified asthma, uncomplicated | CPT/HCPCS: 11042; 93922; 93925; 93970; 99215 ==

== ENCOUNTER → 2018-05-15 | Outpatient (CLI) | payer MEDICAID | END | disposition home or self-care (01) | LOC: WOUND 08:18 | PROVIDERS: ATTEND Internal Medicine | DX: E11.621 Type 2 diabetes mellitus with foot ulcer (principal); L97.512 Non-pressure chronic ulcer of other part of right foot with fat layer exposed; E11.42 Type 2 diabetes mellitus with diabetic polyneuropathy; E11.65 Type 2 diabetes mellitus with hyperglycemia; E11.319 Type 2 diabetes mellitus with unspecified diabetic retinopathy without macular edema; E11.51 Type 2 diabetes mellitus with diabetic peripheral angiopathy without gangrene; L84 Corns and callosities; E78.5 Hyperlipidemia, unspecified; J45.909 Unspecified asthma, uncomplicated; I10 Essential (primary) hypertension; M19.90 Unspecified osteoarthritis, unspecified site; E66.01 Morbid (severe) obesity due to excess calories; Z68.34 Body mass index [BMI] 34.0-34.9, adult; Z79.899 Other long term (current) drug therapy | CPT/HCPCS: 97597 ==

== ENCOUNTER → 2018-05-22 | Outpatient (CLI) | payer MEDICAID | END | disposition home or self-care (01) | LOC: WOUND 07:57 | PROVIDERS: ATTEND Internal Medicine | DX: E11.621 Type 2 diabetes mellitus with foot ulcer (principal); L97.512 Non-pressure chronic ulcer of other part of right foot with fat layer exposed; E11.42 Type 2 diabetes mellitus with diabetic polyneuropathy; E11.65 Type 2 diabetes mellitus with hyperglycemia; E11.51 Type 2 diabetes mellitus with diabetic peripheral angiopathy without gangrene; E11.319 Type 2 diabetes mellitus with unspecified diabetic retinopathy without macular edema; L84 Corns and callosities; E78.5 Hyperlipidemia, unspecified; I10 Essential (primary) hypertension; J45.909 Unspecified asthma, uncomplicated; M19.90 Unspecified osteoarthritis, unspecified site; E66.01 Morbid (severe) obesity due to excess calories; Z68.34 Body mass index [BMI] 34.0-34.9, adult; Z79.899 Other long term (current) drug therapy | CPT/HCPCS: 11042 ==

== ENCOUNTER → 2018-05-29 | Outpatient (CLI) | payer MEDICAID | END | disposition home or self-care (01) | LOC: WOUND 08:00 | PROVIDERS: ATTEND Internal Medicine | DX: E11.621 Type 2 diabetes mellitus with foot ulcer (principal); L97.512 Non-pressure chronic ulcer of other part of right foot with fat layer exposed; E11.42 Type 2 diabetes mellitus with diabetic polyneuropathy; E11.65 Type 2 diabetes mellitus with hyperglycemia; E11.51 Type 2 diabetes mellitus with diabetic peripheral angiopathy without gangrene; E11.319 Type 2 diabetes mellitus with unspecified diabetic retinopathy without macular edema; L84 Corns and callosities; E78.5 Hyperlipidemia, unspecified; I10 Essential (primary) hypertension; J45.909 Unspecified asthma, uncomplicated; M19.90 Unspecified osteoarthritis, unspecified site; E66.01 Morbid (severe) obesity due to excess calories; Z68.34 Body mass index [BMI] 34.0-34.9, adult; Z79.899 Other long term (current) drug therapy | CPT/HCPCS: 97597 ==

== ENCOUNTER 2018-06-06 06:38 | Inpatient (IN) | payer MEDICAID ==
[~2018-06-06] VITALS: Ht 165.1 cm; Wt 92.6 kg
--- NOTE | 2018-06-06 06:56 | NUR ---
Pt report to brii muir.
[2018-06-06] MEDS ORDERED: ONDANSETRON 2MG/ML, 2ML IVPush ONE (07:30)
[2018-06-06] MEDS ORDERED: SODIUM CHLORIDE FLUSH 10ML SYR IVF ONE (07:30)
[2018-06-06] MEDS ORDERED: ONDANSETRON 2MG/ML, 2ML ONE (07:31)
[2018-06-06 07:41] LABS: BASOPHILS # (AUTO) 0.03 x10^3/uL (0-0.1); BASOPHILS % (AUTO) 1 % (0-1); EOSINOPHILS # (AUTO) 0.23 x10^3/uL (0-0.4); EOSINOPHILS % (AUTO) 4 % (1-7); LYMPHOCYTES # (AUTO) 1.27 x10^3/uL (1-3.4); LYMPHOCYTES % (AUTO) 22 % (22-44); MD NO; MEAN CORPUSCULAR HEMOGLOBIN 30.2 pg (27.5-34.5); MEAN CORPUSCULAR HGB CONC 33.1 g/dL (33.2-36.2); MEAN CORPUSCULAR VOLUME 91.3 fL (81-97); MEAN PLATELET VOLUME 10.6 fL (7.4-10.4); MONOCYTES # (AUTO) 0.33 x10^3/uL (0.2-0.8); MONOCYTES % (AUTO) 6 % (2-9); NEUTROPHILS # (AUTO) 3.84 x10^3/uL (1.8-6.8); NEUTROPHILS % (AUTO) 67 % (42-75); PLATELET COUNT 183 x10^3/uL (130-400); RED BLOOD COUNT 4.25 x10^6/uL (4.38-5.82); RED CELL DISTRIBUTION WIDTH 12.7 % (9.4-14.8)
[2018-06-06 07:50] LABS: ANION GAP 5 mmol/L (5-15); CALCIUM 8.5 mg/dL (8.5-10.1); CHLORIDE 107 mmol/L (98-107); CREATININE 1.27 mg/dL (0.7-1.3)
[2018-06-06 07:51] LABS: ALANINE AMINOTRANSFERASE 15 U/L (12-78); ALBUMIN 2.8 g/dL (3.4-5.0)
[2018-06-06 07:53] LABS: ALKALINE PHOSPHATASE 157 U/L (45-117); BILIRUBIN,TOTAL 0.3 mg/dL (0.2-1.0); TOTAL PROTEIN 7.1 g/dL (6.4-8.2)
[2018-06-06] MEDS ORDERED: KETOROLAC 30 MG/1 ML IVPush ONE (08:00)
[2018-06-06] MEDS ORDERED: PROCHLORPERAZINE 5 MG/ML, 2ML IVPush ONE (08:00)
[2018-06-06] MEDS ORDERED: DIPHENHYDRAMINE 50 MG/ML, 1ML IVPush ONE (08:00)
[2018-06-06 08:01] LABS: MICROSCOPIC INDICATED
[2018-06-06 08:15] LABS: CULTURE INDICATED? YES
[2018-06-06] MEDS ORDERED: SODIUM CHLORIDE FLUSH 10ML SYR IVF PRN (08:30)
[2018-06-06] MEDS ORDERED: DEXTROSE 50%, 50ML SYRINGE IVPush ONE (08:30)
[2018-06-06] MEDS ORDERED: FUROSEMIDE 40 MG/4 ML IVPush ONE (08:30)
[2018-06-06] MEDS ORDERED: INSULIN REGULAR 100 UNITS/ML, 3ML VIAL IVPush ONE (08:30)
[2018-06-06] MEDS ORDERED: SODIUM BICARB 8.4%, 50ML SYRINGE IVPush ONE (08:30)
[2018-06-06] MEDS ORDERED: PROCHLORPERAZINE 5 MG/ML, 2ML ONE (08:35)
[2018-06-06] MEDS ORDERED: DIPHENHYDRAMINE 50 MG/ML, 1ML ONE (08:35)
[2018-06-06] MEDS ORDERED: KETOROLAC 30 MG/1 ML ONE (08:35)
[2018-06-06] MEDS ORDERED: FUROSEMIDE 40 MG/4 ML ONE (08:36)
--- NOTE | 2018-06-06 08:48 | NUR ---
AWAITING D50 FROM PHARM THEN WILL DO POTASSIUM COCKTAIL, PT AWARE OF ADMISSION WILL HAVE BRING HOME MEDS
[2018-06-06] MEDS ORDERED: INSULIN SINGLE DOSE, ER SQ-INSULIN ONE (09:08)
--- NOTE | 2018-06-06 09:40 | NUR ---
REPORT RECEIVED FROM RASHAD SALCEDO
--- NOTE | 2018-06-06 09:49 | NUR ---
SUMMER SCHERER ORDERED, PT ON MONITOR, AWAITING BED UPSTAIRS, REPORT GIVEN TO ALENA SALCEDO
[2018-06-06] MEDS ORDERED: ONDANSETRON 2MG/ML, 2ML IVPush PRN (10:00)
[2018-06-06] MEDS ORDERED: ONDANSETRON ODT 4 MG PO PRN (10:00)
[2018-06-06] MEDS ORDERED: ACETAMINOPHEN 325 MG TABLET PO PRN (10:00)
[2018-06-06] MEDS ORDERED: LABETALOL 5 MG/ML SYRINGE IVPush PRN (10:00)
--- NOTE | 2018-06-06 10:00 | NUR ---
PATIENT REPORTS HE HAD BYSTANDER HELP HIM GET UP TO RESTROOM WHERE HE VOIDED "A LARGE AMOUNT."
[2018-06-06] MEDS ORDERED: ALBUTEROL SULFATE 2.5MG/0.5ML NEB PRN (10:30)
[2018-06-06] MEDS ORDERED: TRAZODONE 50MG TABLET PO PRN (10:30)
--- NOTE | 2018-06-06 10:33 | NUR ---
WITH ASSESSMENT PATIENT REPORTS HEADACHE IMPROVED TO 1/10 AND CHILLS RESOLVED. DENIES CP/SOB OR OTHER DISCOMFORT RESTING COMFORTABLY ON GURNEY WITH STABLE VITALS ON PASTE MIXER LIQUID UPDATED ON POC-TO BE ADMITTED SHORTLY CALL PINTO IN HAND/SIDE RAILS UP
--- NOTE | 2018-06-06 10:37 | NUR ---
ATTEMPTED TO UPDATE MED RECC. PATIENT UNSURE OF MEDS. IS ON THE WAY FROM HOME WITH MED BOTTLES REPEAT FSBS 155
[2018-06-06] MEDS: INSULIN LISPRO 100 UNITS/ML, PEN SQ-INSULIN SCH ×3 (11:00→20:11)
[2018-06-06 11:17] LABS: HEMOGLOBIN A1C 12.5 % (4.2-6.3)
[2018-06-06 11:50] VITALS: BP 167/89
[2018-06-06] MEDS: HEPARIN 5,000 UNITS/ML, 1ML SQ SCH ×2 (12:06→17:38)
[2018-06-06] MEDS: PREGABALIN 100 MG CAPSULE PO SCH (12:06)
[2018-06-06] MEDS: CETIRIZINE 10 MG TABLET PO SCH (12:06)
[2018-06-06] MEDS: MONTELUKAST 10 MG TABLET PO SCH (12:06)
[2018-06-06] MEDS: AMLODIPINE 5 MG TABLET PO SCH (20:11)
[2018-06-06 20:44] VITALS: BP 113/71
[2018-06-06] MEDS ORDERED: ATORVASTATIN 40 MG TABLET PO SCH (21:00)
[2018-06-07 00:59] VITALS: BP 100/61
[2018-06-07] MEDS: HEPARIN 5,000 UNITS/ML, 1ML SQ SCH ×2 (01:45→10:12)
[2018-06-07 06:03] LABS: BASOPHILS # (AUTO) 0.03 x10^3/uL (0-0.1); BASOPHILS % (AUTO) 1 % (0-1); EOSINOPHILS % (AUTO) 4 % (1-7); LYMPHOCYTES # (AUTO) 1.56 x10^3/uL (1-3.4); LYMPHOCYTES % (AUTO) 31 % (22-44); MD NO; MEAN CORPUSCULAR HEMOGLOBIN 30.3 pg (27.5-34.5); MEAN CORPUSCULAR HGB CONC 33.3 g/dL (33.2-36.2); MEAN CORPUSCULAR VOLUME 91.1 fL (81-97); MEAN PLATELET VOLUME 10.1 fL (7.4-10.4); MONOCYTES % (AUTO) 8 % (2-9); NEUTROPHILS # (AUTO) 2.79 x10^3/uL (1.8-6.8); NEUTROPHILS % (AUTO) 56 % (42-75); PLATELET COUNT 203 x10^3/uL (130-400); RED BLOOD COUNT 4.12 x10^6/uL (4.38-5.82); RED CELL DISTRIBUTION WIDTH 13.3 % (9.4-14.8)
[2018-06-07 06:14] LABS: ALBUMIN 2.7 g/dL (3.4-5.0); ANION GAP 3 mmol/L (5-15); CALCIUM 8.4 mg/dL (8.5-10.1); CHLORIDE 108 mmol/L (98-107)
[2018-06-07 06:26] LABS: ALANINE AMINOTRANSFERASE 16 U/L (12-78); ALKALINE PHOSPHATASE 144 U/L (45-117); BILIRUBIN,TOTAL 0.3 mg/dL (0.2-1.0); CREATININE 1.48 mg/dL (0.7-1.3); TOTAL PROTEIN 6.6 g/dL (6.4-8.2)
[2018-06-07 07:02] VITALS: BP 104/65
[2018-06-07] MEDS ORDERED: SODIUM CHLORIDE 0.9% 1,000 ML IV SCH (07:30)
[2018-06-07] MEDS: PREGABALIN 100 MG CAPSULE PO SCH (08:09)
[2018-06-07] MEDS: INSULIN LISPRO 100 UNITS/ML, PEN SQ-INSULIN SCH ×2 (08:09→12:01)
[2018-06-07] MEDS: MONTELUKAST 10 MG TABLET PO SCH (08:10)
[2018-06-07] MEDS: CETIRIZINE 10 MG TABLET PO SCH (08:10)
[2018-06-07] MEDS: AMLODIPINE 5 MG TABLET PO SCH (08:10)
[2018-06-07] MEDS ORDERED: CHLORTHALIDONE 25 MG TABLET PO SCH (09:00)
[2018-06-07] MEDS ORDERED: CARV3.12 PO (11:06)
[2018-06-07] MEDS ORDERED: INSU100I34 SQ (11:53)
[2018-06-07 12:01] VITALS: BP 136/82
[2018-06-07] MEDS ORDERED: CHLO25TA PO (12:12)
== END 2018-06-07 13:40 | disposition home or self-care (01) | DRG 641 ==
LOC: ED 08:24 → EDIP 08:25 → ED 08:27 → EDIP 08:43 → 4WST 11:44 → DCLOUNGE 06-07 13:30
PROVIDERS: ADMIT Internal Medicine; ATTEND Internal Medicine
DX: E87.5 Hyperkalemia (principal); D64.9 Anemia, unspecified; E11.42 Type 2 diabetes mellitus with diabetic polyneuropathy; E11.22 Type 2 diabetes mellitus with diabetic chronic kidney disease; E78.5 Hyperlipidemia, unspecified; J45.909 Unspecified asthma, uncomplicated; K59.00 Constipation, unspecified; E11.65 Type 2 diabetes mellitus with hyperglycemia; E11.21 Type 2 diabetes mellitus with diabetic nephropathy; I13.10 Hypertensive heart and chronic kidney disease without heart failure, with stage 1 through stage 4 chronic kidney disease, or unspecified chronic kidney disease; N18.9 Chronic kidney disease, unspecified; S91.301A Unspecified open wound, right foot, initial encounter; X58.XXXA Exposure to other specified factors, initial encounter; Y93.89 Activity, other specified; Y92.89 Other specified places as the place of occurrence of the external cause; Y99.8 Other external cause status; Z88.8 Allergy status to other drugs, medicaments and biological substances; Z79.4 Long term (current) use of insulin; Z82.49 Family history of ischemic heart disease and other diseases of the circulatory system; Z83.3 Family history of diabetes mellitus
CPT/HCPCS: 36415; 71046; 80053; 81001; 82962; 83036; 84132; 84443; 85025; 87086; 87147; 93005; 96374; 96375; 99291; G0378; J1644; J1815; J1885; J1940; J2405; J0780; J1200; J7030

== ENCOUNTER → 2018-06-12 | Outpatient (CLI) | payer MEDICAID ==
[~2018-06-12] MED LIST changes: +CARV3.12 PO; +CHLO25TA PO; +INSU100I34 SQ
== END | disposition home or self-care (01) ==
LOC: WOUND 08:20
PROVIDERS: ATTEND Internal Medicine
DX: E11.621 Type 2 diabetes mellitus with foot ulcer (principal); L97.512 Non-pressure chronic ulcer of other part of right foot with fat layer exposed; E11.21 Type 2 diabetes mellitus with diabetic nephropathy; E11.65 Type 2 diabetes mellitus with hyperglycemia; E11.42 Type 2 diabetes mellitus with diabetic polyneuropathy; E11.51 Type 2 diabetes mellitus with diabetic peripheral angiopathy without gangrene; E11.319 Type 2 diabetes mellitus with unspecified diabetic retinopathy without macular edema; I13.0 Hypertensive heart and chronic kidney disease with heart failure and stage 1 through stage 4 chronic kidney disease, or unspecified chronic kidney disease; E11.22 Type 2 diabetes mellitus with diabetic chronic kidney disease; N18.9 Chronic kidney disease, unspecified; I50.9 Heart failure, unspecified; L84 Corns and callosities; E78.5 Hyperlipidemia, unspecified; J45.909 Unspecified asthma, uncomplicated; M19.90 Unspecified osteoarthritis, unspecified site; E66.01 Morbid (severe) obesity due to excess calories; Z68.34 Body mass index [BMI] 34.0-34.9, adult; Z79.4 Long term (current) use of insulin; Z79.899 Other long term (current) drug therapy; Z88.8 Allergy status to other drugs, medicaments and biological substances
CPT/HCPCS: 97597

== ENCOUNTER → 2018-06-26 | Outpatient (CLI) | payer MEDICAID | END | disposition home or self-care (01) | LOC: WOUND 08:00 | PROVIDERS: ATTEND Internal Medicine | DX: E11.621 Type 2 diabetes mellitus with foot ulcer (principal); L97.818 Non-pressure chronic ulcer of other part of right lower leg with other specified severity; E11.21 Type 2 diabetes mellitus with diabetic nephropathy; E11.42 Type 2 diabetes mellitus with diabetic polyneuropathy; E11.65 Type 2 diabetes mellitus with hyperglycemia; E11.51 Type 2 diabetes mellitus with diabetic peripheral angiopathy without gangrene; E11.319 Type 2 diabetes mellitus with unspecified diabetic retinopathy without macular edema; I13.0 Hypertensive heart and chronic kidney disease with heart failure and stage 1 through stage 4 chronic kidney disease, or unspecified chronic kidney disease; E11.22 Type 2 diabetes mellitus with diabetic chronic kidney disease; I50.9 Heart failure, unspecified; N18.9 Chronic kidney disease, unspecified; L84 Corns and callosities; E78.5 Hyperlipidemia, unspecified; J45.909 Unspecified asthma, uncomplicated; M19.90 Unspecified osteoarthritis, unspecified site; E66.01 Morbid (severe) obesity due to excess calories; Z68.34 Body mass index [BMI] 34.0-34.9, adult; Z79.4 Long term (current) use of insulin; Z88.8 Allergy status to other drugs, medicaments and biological substances | CPT/HCPCS: 99212 ==

== ENCOUNTER 2018-08-06 12:01 | Inpatient (IN) | payer MEDICAID ==
[~2018-08-06] VITALS: Ht 165.1 cm; Wt 93.8 kg
--- NOTE | 2018-08-06 12:19 | NUR ---
PT C/O BACK PAIN STARTING TUESDAY, PT RATES PAIN 08/16. PT DENIES CP, SOB, TRAUMA. ERMD IN TO EVAL PT. NAD
[2018-08-06] MEDS ORDERED: METHOCARBAMOL 750 MG TABLET PO ONE (12:30)
[2018-08-06] MEDS ORDERED: METHOCARBAMOL 750 MG TABLET ONE (12:30)
[2018-08-06 12:37] LABS: BASOPHILS # (AUTO) 0.02 x10^3/uL (0-0.1); BASOPHILS % (AUTO) 0 % (0-1); EOSINOPHILS # (AUTO) 0.17 x10^3/uL (0-0.4); EOSINOPHILS % (AUTO) 3 % (1-7); LYMPHOCYTES # (AUTO) 1.37 x10^3/uL (1-3.4); LYMPHOCYTES % (AUTO) 24 % (22-44); MD NO; MEAN CORPUSCULAR HEMOGLOBIN 30.5 pg (27.5-34.5); MEAN CORPUSCULAR HGB CONC 32.4 g/dL (33.2-36.2); MEAN CORPUSCULAR VOLUME 94.2 fL (81-97); MEAN PLATELET VOLUME 10.4 fL (7.4-10.4); MONOCYTES # (AUTO) 0.37 x10^3/uL (0.2-0.8); MONOCYTES % (AUTO) 6 % (2-9); NEUTROPHILS # (AUTO) 3.89 x10^3/uL (1.8-6.8); NEUTROPHILS % (AUTO) 67 % (42-75); PLATELET COUNT 223 x10^3/uL (130-400); RED BLOOD COUNT 4.33 x10^6/uL (4.38-5.82); RED CELL DISTRIBUTION WIDTH 14.2 % (9.4-14.8)
[2018-08-06 12:47] LABS: ALANINE AMINOTRANSFERASE 24 U/L (12-78); ALBUMIN 3.2 g/dL (3.4-5.0); ANION GAP 7 mmol/L (5-15); CALCIUM 8.5 mg/dL (8.5-10.1); CHLORIDE 102 mmol/L (98-107); CREATININE 1.76 mg/dL (0.7-1.3)
[2018-08-06 12:47] LABS: MICROSCOPIC AUTO
[2018-08-06 12:48] LABS: CULTURE INDICATED? NO
[2018-08-06 12:50] LABS: ALKALINE PHOSPHATASE 176 U/L (45-117); BILIRUBIN,TOTAL 0.3 mg/dL (0.2-1.0); TOTAL PROTEIN 7.6 g/dL (6.4-8.2)
--- NOTE | 2018-08-06 12:56 | NUR ---
MEDICATED HOME MED REC UPDATED VSS STABLE
--- NOTE | 2018-08-06 13:28 | NUR ---
Note mary in EDM - 08/06/18 at 1331 by AMMY PT TO RM FROM TRIAGE, STATES SHE IS NOT HAVING CP, DESCRIBES IT "CHEST TIGHTNESS". PT STATES SHE BEGAN HAVING THE CHEST TIGHTNESS ABOUT A WEEK AGO ALSO DEVELOPED A DRY COUGH. PT TO CONT PULSE OX, CARDIAC MONITIOR, NIBP. SHE DENIES SOB OR TRAUMA.
--- NOTE | 2018-08-06 14:00 | NUR ---
PT STATES PAIN IS NOW A 4/10 POST PAIN MEDICATION, ERMD UPDATED. PT WALKED IN [place], STEADY GAIT WITNESSED, NAD
[2018-08-06] MEDS: SODIUM CHLORIDE 0.9% 1,000 ML IV SCH ×2 (14:41→20:32)
[2018-08-06] MEDS ORDERED: SODIUM CHLORIDE 0.9% 1,000ML IVBOLUS ONE (15:00)
[2018-08-06] MEDS ORDERED: SODIUM CHLORIDE FLUSH 10ML SYR IVF ONE (15:00)
[2018-08-06] MEDS ORDERED: DEXTROSE 50%, 50ML SYRINGE IVPush PRN (15:00)
[2018-08-06] MEDS ORDERED: ONDANSETRON 2MG/ML, 2ML IVPush PRN (15:00)
[2018-08-06] MEDS ORDERED: ONDANSETRON ODT 4 MG PO PRN (15:00)
[2018-08-06] MEDS ORDERED: LABETALOL 5MG/ML, 20ML IVPush PRN (15:00)
[2018-08-06] MEDS ORDERED: GLUCAGON 1 MG IM PRN (15:00)
[2018-08-06] MEDS ORDERED: DEXTROSE 4 GM TAB.CHEW PO PRN (15:00)
--- NOTE | 2018-08-06 15:26 | NUR ---
REPORT GIVEN TO RECIEVING MATIAS PARKER
[2018-08-06] MEDS ORDERED: ALBUTEROL SULFATE 2.5 MG/3 ML HHN PRN (15:30)
[2018-08-06] MEDS ORDERED: LABETALOL 5MG/ML, 20ML ONE (15:36)
--- NOTE | 2018-08-06 15:44 | NUR ---
PT MEDICATED FOR ELEVATED BP, WILL REASESS PRIOR TO TRANSFER.
[2018-08-06 15:45] LABS: FREE T4 (FREE THYROXINE) 1.07 ng/dL (0.76-1.46)
[2018-08-06 15:50] LABS: HEMOGLOBIN A1C 10.5 % (4.2-6.3)
[2018-08-06] MEDS: INSULIN LISPRO 100 UNITS/ML, PEN SQ-INSULIN SCH ×2 (16:00→20:33)
[2018-08-06] MEDS: PREGABALIN 100 MG CAPSULE PO SCH ×2 (16:00→20:32)
--- NOTE | 2018-08-06 16:15 | NUR ---
DR TAMAYO CALLED TO UPDATE ON PTS BP AND INTERVENTIONS, PT CHANGED TO MED/TELE.
--- NOTE | 2018-08-06 16:54 | NUR ---
DR ALLEN AT BEDSIDE.
--- NOTE | 2018-08-06 17:06 | NUR ---
NCS DIET TRAY ORDERED.
[2018-08-06] MEDS ORDERED: HEPARIN 5,000 UNITS/ML, 1ML ONE (17:19)
[2018-08-06] MEDS ORDERED: AMLODIPINE 5 MG TABLET ONE (17:22)
[2018-08-06] MEDS: HEPARIN 5,000 UNITS/ML, 1ML SQ SCH (17:25)
[2018-08-06] MEDS: AMLODIPINE 5 MG TABLET PO SCH (17:26)
--- NOTE | 2018-08-06 17:30 | NUR ---
REPORT GIVEN TO RECIEVING MATIAS MARIE
[2018-08-06 20:00] VITALS: BP 200/98
[2018-08-06] MEDS: SODIUM CHLORIDE FLUSH 10ML SYR IVF SCH (20:31)
[2018-08-06] MEDS: CARVEDILOL 3.125 MG TABLET PO SCH (20:32)
[2018-08-06] MEDS: ATORVASTATIN 40 MG TABLET PO SCH (20:32)
[2018-08-06] MEDS: INSULIN GLARGINE 100 UNITS/ML, PEN SQ-INSULIN SCH (20:33)
[2018-08-07] MEDS: HEPARIN 5,000 UNITS/ML, 1ML SQ SCH ×3 (01:14→17:17)
[2018-08-07] MEDS: TRAZODONE 50MG TABLET PO PRN (01:14)
[2018-08-07 02:25] VITALS: BP 170/90
[2018-08-07] MEDS: SODIUM CHLORIDE 0.9% 1,000 ML IV SCH ×2 (04:37→15:15)
[2018-08-07 05:35] LABS: BASOPHILS # (AUTO) 0.01 x10^3/uL (0-0.1); BASOPHILS % (AUTO) 0 % (0-1); EOSINOPHILS % (AUTO) 4 % (1-7); LYMPHOCYTES # (AUTO) 1.51 x10^3/uL (1-3.4); LYMPHOCYTES % (AUTO) 29 % (22-44); MD NO; MEAN CORPUSCULAR HEMOGLOBIN 30.5 pg (27.5-34.5); MEAN CORPUSCULAR HGB CONC 32.7 g/dL (33.2-36.2); MEAN CORPUSCULAR VOLUME 93.4 fL (81-97); MEAN PLATELET VOLUME 10.1 fL (7.4-10.4); MONOCYTES # (AUTO) 0.42 x10^3/uL (0.2-0.8); MONOCYTES % (AUTO) 8 % (2-9); NEUTROPHILS # (AUTO) 3.04 x10^3/uL (1.8-6.8); NEUTROPHILS % (AUTO) 59 % (42-75); PLATELET COUNT 189 x10^3/uL (130-400); RED BLOOD COUNT 3.99 x10^6/uL (4.38-5.82); RED CELL DISTRIBUTION WIDTH 14.2 % (9.4-14.8)
[2018-08-07 05:41] LABS: CHLORIDE 108 mmol/L (98-107)
[2018-08-07 05:59] LABS: ALANINE AMINOTRANSFERASE 18 U/L (12-78); ALBUMIN 2.6 g/dL (3.4-5.0); ANION GAP 5 mmol/L (5-15); CREATININE 1.35 mg/dL (0.7-1.3)
[2018-08-07 06:09] LABS: ALKALINE PHOSPHATASE 140 U/L (45-117); BILIRUBIN,TOTAL 0.3 mg/dL (0.2-1.0); TOTAL PROTEIN 6.5 g/dL (6.4-8.2)
[2018-08-07 07:07] VITALS: BP 185/98
[2018-08-07] MEDS: INSULIN LISPRO 100 UNITS/ML, PEN SQ-INSULIN SCH ×4 (07:22→20:43)
[2018-08-07] MEDS: MONTELUKAST 10 MG TABLET PO SCH (07:23)
[2018-08-07] MEDS: PREGABALIN 100 MG CAPSULE PO SCH ×3 (07:23→20:29)
[2018-08-07] MEDS: CARVEDILOL 3.125 MG TABLET PO SCH ×2 (07:23→20:32)
[2018-08-07] MEDS: SODIUM CHLORIDE FLUSH 10ML SYR IVF SCH ×2 (07:23→20:29)
[2018-08-07] MEDS: SENNA/DOCUSATE TABLET PO SCH (07:23)
[2018-08-07] MEDS: AMLODIPINE 5 MG TABLET PO SCH ×3 (07:23→20:32)
[2018-08-07] MEDS ORDERED: METHOCARBAMOL 500 MG TABLET PO PRN (08:00)
[2018-08-07] MEDS ORDERED: INSULIN GLARGINE 100 UNITS/ML, PEN SQ-INSULIN SCH (09:00)
[2018-08-07] MEDS: CHLORTHALIDONE 25 MG TABLET PO SCH ×2 (09:00→09:02)
[2018-08-07] MEDS: methylPREDNISolone SOD SUCC 125 MG/2 ML IVPush SCH ×3 (09:02→20:28)
[2018-08-07 09:36] VITALS: BP 134/80
[2018-08-07 12:52] VITALS: BP 175/94
[2018-08-07 19:13] VITALS: BP 150/92
[2018-08-07] MEDS: INSULIN GLARGINE 100 UNITS/ML, PEN SQ-INSULIN SCH (20:28)
[2018-08-07] MEDS: ATORVASTATIN 40 MG TABLET PO SCH (20:29)
[2018-08-07] MEDS ORDERED: INSULIN LISPRO 100 UNITS/ML, PEN SQ-INSULIN ONE (21:00)
[2018-08-08] VITALS (8 sets, daily range): BP systolic 119–182; BP diastolic 73–91
[2018-08-08] MEDS: SODIUM CHLORIDE 0.9% 1,000 ML IV SCH (01:51)
[2018-08-08] MEDS: methylPREDNISolone SOD SUCC 125 MG/2 ML IVPush SCH (01:51)
[2018-08-08] MEDS: HEPARIN 5,000 UNITS/ML, 1ML SQ SCH ×3 (01:51→16:33)
[2018-08-08 05:27] LABS: BASOPHILS % (AUTO) 0 % (0-1); EOSINOPHILS % (AUTO) 0 % (1-7); LYMPHOCYTES # (AUTO) 0.81 x10^3/uL (1-3.4); LYMPHOCYTES % (AUTO) 7 % (22-44); MD NO; MEAN CORPUSCULAR HEMOGLOBIN 29.9 pg (27.5-34.5); MEAN CORPUSCULAR HGB CONC 32.5 g/dL (33.2-36.2); MEAN CORPUSCULAR VOLUME 91.9 fL (81-97); MEAN PLATELET VOLUME 10.4 fL (7.4-10.4); MONOCYTES # (AUTO) 0.09 x10^3/uL (0.2-0.8); MONOCYTES % (AUTO) 1 % (2-9); NEUTROPHILS # (AUTO) 10.72 x10^3/uL (1.8-6.8); NEUTROPHILS % (AUTO) 92 % (42-75); PLATELET COUNT 216 x10^3/uL (130-400); RED BLOOD COUNT 4.35 x10^6/uL (4.38-5.82); RED CELL DISTRIBUTION WIDTH 14.3 % (9.4-14.8)
[2018-08-08 05:33] LABS: ALANINE AMINOTRANSFERASE 17 U/L (12-78); ALBUMIN 2.5 g/dL (3.4-5.0); ANION GAP 8 mmol/L (5-15); CALCIUM 8.5 mg/dL (8.5-10.1); CHLORIDE 109 mmol/L (98-107); CREATININE 1.35 mg/dL (0.7-1.3)
[2018-08-08 05:36] LABS: ALKALINE PHOSPHATASE 136 U/L (45-117); BILIRUBIN,TOTAL 0.4 mg/dL (0.2-1.0); TOTAL PROTEIN 6.7 g/dL (6.4-8.2)
[2018-08-08] MEDS: INSULIN LISPRO 100 UNITS/ML, PEN SQ-INSULIN SCH ×4 (08:19→20:29)
[2018-08-08] MEDS: SODIUM CHLORIDE FLUSH 10ML SYR IVF SCH ×2 (08:20→20:30)
[2018-08-08] MEDS: CHLORTHALIDONE 25 MG TABLET PO SCH (08:21)
[2018-08-08] MEDS: CARVEDILOL 3.125 MG TABLET PO SCH (08:21)
[2018-08-08] MEDS: AMLODIPINE 5 MG TABLET PO SCH ×2 (08:21→20:30)
[2018-08-08] MEDS: PREGABALIN 100 MG CAPSULE PO SCH ×3 (08:21→20:30)
[2018-08-08] MEDS: MONTELUKAST 10 MG TABLET PO SCH (08:22)
[2018-08-08] MEDS: SENNA/DOCUSATE TABLET PO SCH (08:22)
[2018-08-08] MEDS: INSULIN GLARGINE 100 UNITS/ML, PEN SQ-INSULIN SCH ×2 (08:31→20:30)
[2018-08-08] MEDS: CARVEDILOL 12.5 MG TABLET PO SCH ×2 (12:12→20:30)
[2018-08-08] MEDS: ATORVASTATIN 40 MG TABLET PO SCH (20:30)
[2018-08-09] MEDS: HEPARIN 5,000 UNITS/ML, 1ML SQ SCH ×2 (01:37→08:43)
[2018-08-09] MEDS: TRAZODONE 50MG TABLET PO PRN (01:39)
[2018-08-09 01:45] VITALS: BP 133/75
[2018-08-09] MEDS: INSULIN LISPRO 100 UNITS/ML, PEN SQ-INSULIN SCH ×2 (07:00→11:00)
[2018-08-09 07:29] VITALS: BP 124/81
[2018-08-09] MEDS: PREGABALIN 100 MG CAPSULE PO SCH (08:41)
[2018-08-09] MEDS: MONTELUKAST 10 MG TABLET PO SCH (08:41)
[2018-08-09] MEDS: CHLORTHALIDONE 25 MG TABLET PO SCH (08:41)
[2018-08-09] MEDS: SODIUM CHLORIDE FLUSH 10ML SYR IVF SCH (08:42)
[2018-08-09] MEDS: AMLODIPINE 5 MG TABLET PO SCH (08:42)
[2018-08-09] MEDS: SENNA/DOCUSATE TABLET PO SCH (08:42)
[2018-08-09] MEDS: CARVEDILOL 12.5 MG TABLET PO SCH (08:43)
[2018-08-09] MEDS: INSULIN GLARGINE 100 UNITS/ML, PEN SQ-INSULIN SCH (08:44)
[2018-08-09 09:00] LABS: BASOPHILS # (AUTO) 0.03 x10^3/uL (0-0.1); BASOPHILS % (AUTO) 0 % (0-1); EOSINOPHILS # (AUTO) 0.01 x10^3/uL (0-0.4); EOSINOPHILS % (AUTO) 0 % (1-7); LYMPHOCYTES # (AUTO) 1.49 x10^3/uL (1-3.4); LYMPHOCYTES % (AUTO) 13 % (22-44); MD NO; MEAN CORPUSCULAR HEMOGLOBIN 30.4 pg (27.5-34.5); MEAN CORPUSCULAR HGB CONC 32.5 g/dL (33.2-36.2); MEAN CORPUSCULAR VOLUME 93.4 fL (81-97); MEAN PLATELET VOLUME 10.2 fL (7.4-10.4); MONOCYTES # (AUTO) 0.68 x10^3/uL (0.2-0.8); MONOCYTES % (AUTO) 6 % (2-9); NEUTROPHILS # (AUTO) 8.87 x10^3/uL (1.8-6.8); NEUTROPHILS % (AUTO) 80 % (42-75); PLATELET COUNT 227 x10^3/uL (130-400); RED CELL DISTRIBUTION WIDTH 14.6 % (9.4-14.8)
[2018-08-09 09:09] LABS: ALBUMIN 2.8 g/dL (3.4-5.0); ANION GAP 6 mmol/L (5-15); CALCIUM 8.8 mg/dL (8.5-10.1); CHLORIDE 113 mmol/L (98-107)
[2018-08-09 09:13] LABS: CREATININE 1.48 mg/dL (0.7-1.3)
[2018-08-09 09:14] LABS: ALANINE AMINOTRANSFERASE 17 U/L (12-78); ALKALINE PHOSPHATASE 132 U/L (45-117); BILIRUBIN,TOTAL 0.2 mg/dL (0.2-1.0); TOTAL PROTEIN 6.9 g/dL (6.4-8.2)
[2018-08-09] MEDS ORDERED: INSU100I13 SQ-INSULIN ×2 (12:47)
[2018-08-09] MEDS ORDERED: METH500T7 PO (12:47)
[2018-08-09] MEDS ORDERED: CARV12.543 PO (12:48)
[2018-08-09] MEDS ORDERED: METH4TAB2 PO (12:49)
== END 2018-08-09 13:30 | disposition home or self-care (01) | DRG 552 ==
LOC: ED 12:52 → EDIP 15:07 → UNDOADMIN 15:07 → EDIP 15:17 → 4NOR 15:17 → EDIP 16:36 → 4NOR 16:36 → INTOOBSV 16:36 → EDIP 17:10 → 4EST 17:47 → OBSVTOIN 08-08 11:53 → DCLOUNGE 08-09 13:24
PROVIDERS: ADMIT Hospitalist; ATTEND Hospitalist
DX: M54.9 Dorsalgia, unspecified (principal); E87.1 Hypo-osmolality and hyponatremia; D64.9 Anemia, unspecified; E11.22 Type 2 diabetes mellitus with diabetic chronic kidney disease; E11.65 Type 2 diabetes mellitus with hyperglycemia; E78.5 Hyperlipidemia, unspecified; E87.5 Hyperkalemia; E11.42 Type 2 diabetes mellitus with diabetic polyneuropathy; G89.29 Other chronic pain; I13.10 Hypertensive heart and chronic kidney disease without heart failure, with stage 1 through stage 4 chronic kidney disease, or unspecified chronic kidney disease; J45.909 Unspecified asthma, uncomplicated; N18.3 Chronic kidney disease, stage 3 (moderate)
CPT/HCPCS: 36415; 72110; 80053; 81001; 82947; 82962; 83036; 83735; 84100; 84439; 84443; 85025; 96374; 99285; G0378; J1644; J1815; J2930; J7030; J7512

== ENCOUNTER 2019-02-25 09:46 | Emergency (ER) | payer MEDICARE, MEDICAID ==
[~2019-02-25] VITALS: Ht 165.1 cm; Wt 97.7 kg
[~2019-02-25 09:46] MED LIST changes: +CARV12.543 PO; +INSU100I13 SQ-INSULIN; +METH4TAB2 PO; +METH500T7 PO
[2019-02-25 09:50] VITALS: BP 165/68
[2019-02-25] MEDS ORDERED: NEOSPORIN OINT. PKT 1 PACKET ONE (10:27)
== END 2019-02-25 10:56 | disposition home or self-care (01) ==
LOC: ED 10:47
DX: G89.11 Acute pain due to trauma (principal); M25.572 Pain in left ankle and joints of left foot; E11.40 Type 2 diabetes mellitus with diabetic neuropathy, unspecified; E11.65 Type 2 diabetes mellitus with hyperglycemia; I10 Essential (primary) hypertension; E78.5 Hyperlipidemia, unspecified; J45.909 Unspecified asthma, uncomplicated
CPT/HCPCS: 82962; 99283

== ENCOUNTER 2020-02-18 16:53 | Emergency (ER) | payer MEDICAID, OTHER ==
[~2020-02-18] VITALS: Ht 165.1 cm; Wt 100.7 kg
[~2020-02-18 16:53] MED LIST changes: -CETI10TA24 PO; +CETI10TA76 PO; -ENAL2.5T PO; +ENAL2.5T8 PO
[2020-02-18] MEDS ORDERED: CEPHALEXIN 500 MG CAPSULE ONE (17:27)
[2020-02-18] MEDS ORDERED: SULFAMETH./TRIMETHOPRIM DS 800MG/160MG TABLET ONE (17:27)
[2020-02-18] MEDS ORDERED: LIDOCAINE-MPF 1%, 5ML ONE (17:27)
[2020-02-18] MEDS ORDERED: CEPHALEXIN 500 MG CAPSULE PO ONE (17:30)
[2020-02-18] MEDS ORDERED: SULFAMETH./TRIMETHOPRIM DS 800MG/160MG TABLET PO ONE (17:30)
[2020-02-18] MEDS ORDERED: LIDOCAINE 1%, 10ML INFIL ONE (17:30)
[2020-02-18 18:18] VITALS: BP 171/68
== END 2020-02-18 18:35 | disposition home or self-care (01) ==
LOC: ED 18:27
DX: L03.116 Cellulitis of left lower limb (principal); L02.416 Cutaneous abscess of left lower limb; I10 Essential (primary) hypertension; E11.9 Type 2 diabetes mellitus without complications; E78.5 Hyperlipidemia, unspecified; J45.909 Unspecified asthma, uncomplicated
CPT/HCPCS: 10060; 99284; J3490

== ENCOUNTER 2020-02-20 12:11 | Emergency (ER) | payer OTHER ==
[~2020-02-20] VITALS: Ht 165.1 cm; Wt 101.9 kg
[2020-02-20 12:15] VITALS: BP 128/67
== END 2020-02-20 14:25 | disposition home or self-care (01) ==
LOC: ED 13:48
DX: L02.416 Cutaneous abscess of left lower limb (principal); I10 Essential (primary) hypertension; E11.9 Type 2 diabetes mellitus without complications; J45.909 Unspecified asthma, uncomplicated
CPT/HCPCS: 99281

== ENCOUNTER 2020-08-15 15:40 | Emergency (ER) | payer MEDICARE, MEDICAID ==
[~2020-08-15] VITALS: Ht 165.1 cm; Wt 103.6 kg
[~2020-08-15 15:40] MED LIST changes: +CARV25TA12 PO; +CLON0.1T22 PO; +EMPA25TA PO; +ERGO500017 PO; +FURO40TA6 PO; +INSU100I28 SQ-INSULIN; +JARDIANCE; +LASIX PO; +LINE600T12 PO; -LISI40TA PO; +LISI40TA9 PO; +LOSA50TA14 PO; +METH-639 PO; -METH500T7 PO; +MONT5TAB16 PO; -MONT5TAB9 PO; +POTASSIUM SUPP
--- NOTE | 2020-08-15 16:23 | NUR ---
PT PROVIDED URINAL, UNABLE TO VOID AT THIS TIME. PT REPORTS DX OF UTI TWO WEEKS AGO WHILE ON VACATION IN [place]. PT TOOK ANTIBIOTICS PRESCRIBED THERE BUT PAIN HAS PERSISTED. PT WITH R FLANK PAIN, DENIES ABD PAIN. 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 CALL LIGHT WITHIN REACH.
[2020-08-15] MEDS ORDERED: SODIUM CHLORIDE FLUSH 10ML SYR IVF ONE (17:00)
[2020-08-15 17:19] LABS: BASOPHILS % (AUTO) 1 % (0-1); EOSINOPHILS % (AUTO) 6 % (1-7); LYMPHOCYTES % (AUTO) 29 % (22-44); MEAN CORPUSCULAR HEMOGLOBIN 29.6 pg (27.5-34.5); MEAN CORPUSCULAR HGB CONC 32.4 g/dL (33.2-36.2); MONOCYTES % (AUTO) 6 % (2-9); NEUTROPHILS % (AUTO) 57 % (42-75); PLATELET COUNT 175 x10^3/uL (130-400); RED BLOOD COUNT 4.25 x10^6/uL (4.38-5.82); RED CELL DISTRIBUTION WIDTH 15.2 % (9.4-14.8)
--- NOTE | 2020-08-15 17:21 | NUR ---
URINE COLLECTED/SENT TO LAB. PT SLEEPING INTERMITTENTLY. VSS/UPDATED IN COMPUTER
[2020-08-15 17:27] LABS: ALANINE AMINOTRANSFERASE 78 U/L (12-78); ALBUMIN 3.2 g/dL (3.4-5.0); ANION GAP 5 mmol/L (5-15); CALCIUM 8.4 mg/dL (8.5-10.1); CHLORIDE 115 mmol/L (98-107)
[2020-08-15 17:28] LABS: MICROSCOPIC AUTO
[2020-08-15 17:30] LABS: ALKALINE PHOSPHATASE 90 U/L (45-117); BILIRUBIN,TOTAL 0.2 mg/dL (0.2-1.0); TOTAL PROTEIN 7.7 g/dL (6.4-8.2); TROPONIN I < 0.015 ng/mL (0.000-0.045)
[2020-08-15] MEDS ORDERED: SODIUM CHLORIDE 0.9% 1,000ML IVBOLUS ONE (18:00)
[2020-08-15 18:51] VITALS: BP 181/61
--- NOTE | 2020-08-15 19:08 | NUR ---
Patient/Caregiver given discharge instructions and they have confirmed that they understand the instructions. Patient ambulatory with steady gait. NAD, all questions answered appropriately, denies additional needs at this time. No personal belongings left in room after discharge.
== END 2020-08-15 19:14 | disposition home or self-care (01) ==
LOC: ED 17:16
DX: R60.0 Localized edema (principal); E88.09 Other disorders of plasma-protein metabolism, not elsewhere classified; I12.9 Hypertensive chronic kidney disease with stage 1 through stage 4 chronic kidney disease, or unspecified chronic kidney disease; N18.2 Chronic kidney disease, stage 2 (mild); R11.2 Nausea with vomiting, unspecified; E78.5 Hyperlipidemia, unspecified; E11.22 Type 2 diabetes mellitus with diabetic chronic kidney disease; J45.909 Unspecified asthma, uncomplicated
CPT/HCPCS: 36415; 80053; 81001; 83690; 84484; 85025; 96360; 99283; J7030

== ENCOUNTER 2020-08-16 09:54 | Emergency (ER) | payer MEDICARE, MEDICAID ==
[~2020-08-16] VITALS: Ht 162.6 cm; Wt 103.0 kg
--- NOTE | 2020-08-16 10:29 | NUR ---
PT AMBULATORY TO ROOM, CHANGED INTO GOWN. CALL LIGHT WITHIN REACH. PT DILCIA HE IS HERE FOR A RECHECK FOR A KIDNEY INFECTION, WAS SEEN LAST NIGHT AND WAS TOLD TO COME BACK TODAY. DENIES ANY GI/ PAIN.
--- NOTE | 2020-08-16 10:39 | NUR ---
ERP AT BS
[2020-08-16 11:22] LABS: CALCIUM 8.5 mg/dL (8.5-10.1); CREATININE 1.93 mg/dL (0.7-1.3)
[2020-08-16 11:27] LABS: ANION GAP 6 mmol/L (5-15)
[2020-08-16 11:30] LABS: CHLORIDE 117 mmol/L (98-107)
[2020-08-16 12:16] VITALS: BP 147/81
--- NOTE | 2020-08-16 12:27 | NUR ---
TASK RN. PT OK FOR D/C PER ERMD. PT GIVEN D/C INSTRUCTIONS, VERBALIZED UNDERSTADNING. PT HAS STEADY GAIT UPON D/C.
== END 2020-08-16 12:30 | disposition home or self-care (01) ==
LOC: ED 10:59
DX: E86.0 Dehydration (principal); R60.0 Localized edema; N18.9 Chronic kidney disease, unspecified
CPT/HCPCS: 36415; 80048; 99283